=== PATIENT | female | born 1955 | race Caucasian/White ===

== ENCOUNTER 2016-09-18 18:17 | Observation (INO) ==
[2016-09-18 18:35] LABS: Basophils % 0.6 %; Eosinophils # 0.1 K/mcL (0.0-0.6); Eosinophils % 1.5 %; Hematocrit 50.5 % (35.3-44.9); Hemoglobin 17.1 g/dL (11.5-15.4); Immature Granulocytes % 0.2 % (0-4); Lymphocytes # 3.1 K/mcL (0.6-4.6); Lymphocytes % 47.2 %; Mean Corpuscular HGB Conc 33.9 g/dL (31.6-35.5); Mean Corpuscular Hemoglobin 30.8 pg (28.0-33.3); Mean Corpuscular Volume 90.8 fL (83.0-100.0); Mean Platelet Volume 9.1 fL (9.4-12.4); Monocytes # 0.4 K/mcL (0.0-1.3); Monocytes % 5.4 %; Platelet Count 277 K/mcL (140-400); Red Blood Count 5.56 M/mcL (3.82-4.97); Segmented Neutrophils % 45.1 %
--- NOTE | 2016-09-18 18:35 | Emergency Department Note ---
Disposition Clinical Impression: Right sided weakness, Ataxia CVA (cerebral vascular accident) Qualifiers: CVA mechanism: unspecified Qualified Code(s): I63.9 - Cerebral infarction, unspecified Disposition: Admitted As Inpatient Condition: Fair Time of Disposition: 19:25 Neuro HPI - General Chief Complaint: ED Neuro Symptoms/Deficit Stated Complaint: R/O stroke Time Seen by Provider: 09/18/16 18:26 Source: patient Mode of arrival: wheelchair Limitations: no limitations, language barrier Nursing Notes Reviewed: Yes Vital Signs Reviewed: Yes - History of Present Illness HPI Narrative: 61-year-old female history of hypertension presents for evaluation of possible stroke. Patient states she was well up until about 1730 this evening. Patient went to urgent care and had right arm weakness right leg weakness and difficulty speaking. States that she does not have a history of a stroke. Patient was sent here for evaluation from the urgent care. Patient denies any other systemic signs or symptoms. No history of chest pain or short of breath. No nausea vomiting or any other symptoms. States that she was dropping things earlier this evening when she noted the arm weaknesses. Patient states that she is difficulty finding her words. Patient denies being on any anticoagulation. - Related Data Home Medications: Home Medications Medication Instructions Recorded Confirmed Fluticasone Propionate Nasal 2 spray NS DAILY 10/01/14 09/03/16 [Flonase] Nitroglycerin [Nitrostat] 0.4 mg SL PRN PRN 07/18/15 09/03/16 Ranitidine HCl [Zantac] 150 mg PO BID 07/18/15 09/03/16 Lisinopril [Zestril] 20 mg PO DAILY 07/04/16 09/03/16 Albuterol Sulfate [Albuterol 1 puff IH QID 09/03/16 09/03/16 Inhaler] Previous Rx's Medication Instructions Recorded Ipratropium Neb [Atrovent Neb] 0.5 mg IH Q6HR #60 vial.neb 07/13/15 Potassium Chloride 10 meq PO DAILY #30 tab.er.prt 07/19/15 Allergies/Adverse Reactions: Allergies Allergy/AdvReac Type Severity Reaction Status Date / Time acetaminophen [From Vicodin] Allergy See Verified 09/18/16 17:08 Comments codeine Allergy Difficulty Verified 09/18/16 17:08 Breathing doxycycline Allergy Swelling Verified 09/18/16 17:08 of Lip/Tongue/Throat hydrocodone [From Vicodin] Allergy See Verified 09/18/16 17:08 Comments azithromycin [From Zithromax] AdvReac Itching Verified 09/18/16 17:08 clarithromycin [From Biaxin] AdvReac Loss of Verified 09/18/16 17:08 Appetite lidocaine AdvReac Anaphylaxis Verified 09/18/16 17:08 Penicillins AdvReac Difficulty Verified 09/18/16 17:08 Breathing prednisone AdvReac Vomiting Verified 09/18/16 17:08 All systems ED: reviewed and negative except as stated. Constitutional: Reports: as per HPI. Denies: fever Eyes: Reports: as per HPI ENT ED: Reports: as per HPI Cardiovascular: Reports: as per HPI. Denies: chest pain Respiratory: Reports: as per HPI. Denies: dyspnea Gastrointestinal: Reports: as per HPI. Denies: abdominal pain, nausea, vomiting Genitourinary: Reports: as per HPI Musculoskeletal: Reports: as per HPI Integumentary: Reports: as per HPI Neurological: Reports: as per HPI Psychiatric: Reports: as per HPI Endocrine: Reports: as per HPI Hematological/Lymphatic: Reports: as per HPI Past Medical History - Past Medical History Medical history: Reports: cancer, COPD, hypertension Surgical history: Reports: appendectomy, , cholecystectomy, hysterectomy Psychiatric history: Reports: no psych history DIETARY SERVER history: Reports: no DIETARY SERVER history - Social History Smoking Status: Former smoker Smokeless Tobacco Status: No Alcohol use: Reports: none Drug use: Reports: none Physical Exam - General Limitations: language barrier General appearance: in no apparent distress - Head Head exam: atraumatic, normocephalic, normal inspection - Eye Eye exam: Present: normal appearance, PERRL, EOMI - ENT ENT exam: normal exam, mucous membranes moist - Neck Neck exam: Present: normal inspection, trachea midline - Chest Chest inspection: Present: normal inspection, symmetric chest wall rise - Respiratory Respiratory exam: Present: normal lung sounds bilaterally. Absent: respiratory distress - Cardiovascular Cardiovascular exam: Present: regular rate, normal rhythm - Abdominal Exam Abdominal exam: Present: soft, Non-Tender - Rectal Exam Rn Women Services present during exam: Yes Rectal exam: Present: normal inspection, hemorrhoids. Absent: heme (+) stool, bloody stool - Extremities Exam Extremities exam: Present: normal inspection - Expanded Lower Extremity Exam Foot/toe exam: Present: normal inspection - Back Exam Back exam: Present: normal inspection - Neurological Exam Neurological exam: Present: alert, oriented X3, CN II-XII intact - Expanded Neurological Exam Patient oriented to: Present: person, place, time Speech: Present: expressive aphasia Cranial nerves: EOM function (II, III, IV, ): Normal, facial sensation (V): Normal, facial palsy (VII): Normal, spinal accessory function (XI): Normal, tongue deviation (XII): Normal Cerebellar function: finger to nose: Normal Motor strength - LUE: 5/5 Motor strength - RUE: 4/5 Motor strength - LLE: 5/5 Motor strength - RLE: 4/5 Coma Scale Eye Opening: Spontaneous Coma Scale Motor Response: Obeys Commands Coma Scale Verbal Response: Oriented Coma Scale Total: 15 - Skin Skin exam: Present: warm, dry, intact, normal color Course Course Narrative: Stroke alert activated on patient presentation. - Reevaluation(s) Reevaluation #1: Stroke alert activated upon ED assessment. Patient does have unilateral weakness on the right side. Patient does have some expressive aphasia. NIH of 2. Initial head CT by my interpretation doesn't show any acute bleeds. Awaiting radiology interpretation. Call placed to pharmacy to mix and hold TPA. Time: 18:36 Reevaluation #2: Patient seen and examined. Patient states that she does have visible blood in her stool. Patient been followed by GI. Etiology is unclear. Time: 18:43 Reevaluation #3: While the patient was in CT, the patient states she does have a dye allergy. Patient is not able to describe what happens with her allergy. Patient will be evaluated by other means and then CTA of the head and neck. Time: 19:45 - Consultations Consultation #1: Patient seen and examined. Spoke with neurology who is attempting to evaluate the patient via telemedicine. Time: 18:50 Consultation #2: [facility] neurologist via telemedicine does not recommend TPA at this point. Patient' s brother at bedside states she was last well possibly last night and patient now states that she has been having intermittent symptoms earlier today. Patient's repeat neurologic exam reveals slightly more pronounced ataxia on the right, patient's aphasia appears to be resolved. Time: 19:13 Vital Signs Temperature 98.3 F 09/18/16 18:21 Pulse Rate 86 09/18/16 18:21 Respiratory Rate 18 09/18/16 18:21 Blood Pressure 177/80 09/18/16 18:21 O2 Sat by Pulse Oximetry 97 09/18/16 18:21 Temperature 98.3 F 09/18/16 18:21 Pulse Rate 81 09/18/16 18:59 Respiratory Rate 18 09/18/16 18:59 Blood Pressure 149/78 09/18/16 18:59 O2 Sat by Pulse Oximetry 97 09/18/16 18:21 Oxygen Delivery Oxygen Delivery Room Air Neuro Symptoms/Deficit - MDM Narrative Medical decision making narrative: 61-year-old female with a history of hypertension coronary artery disease presents for evaluation of neuro deficits. Patient initial complaint was right- sided weakness with difficulty finding her words. Patient had an agent to initially on exam. Patient was only at bedside and confirmed that her last known well was a proximally 1730. Patient does have a history of dementia. Stroke alert was activated. Evaluation by neurologist at [facility] recommended against TPA as the patient's brother brought to bedside states the patient has been having intermittent symptoms and possible last done well as yesterday evening. Patient also has a history of GI bleeding. Patient's stool guaiac on exam was negative. Recommended against TPA by neurologist. Neurologist recommended further studies with CT angiogram of the head and neck. Patient was given aspirin. Patient will be admitted to the hospital service for frequent neuro checks and further neurologic studies. Patient as well as brother at bedside for agreeable with this plan of care. - Lab Data Lab results reviewed: Yes I reviewed the patient's lab results. Result diagrams: 09/18/16 18:27 09/18/16 18:27 Lab Results 09/18/16 09/18/16 09/18/16 Range/Units 18:26 18:27 18:27 WBC 6.6 (4.3-11.1) K/mcL RBC 5.56 H (3.82-4.97) M/mcL Hgb 17.1 H (11.5-15.4) g/dL Hct 50.5 H (35.3-44.9) % MCV 90.8 (83.0-100.0) fL MCH 30.8 (28.0-33.3) pg MCHC 33.9 (31.6-35.5) g/dL RDW 13.0 (11.5-14.5) % Plt Count 277 (140-400) K/mcL MPV 9.1 L (9.4-12.4) fL Immature Gran % 0.2 (0-4) % Seg Neutrophils % 45.1 % Lymphocytes % 47.2 % Monocytes % 5.4 % Eosinophils % 1.5 % Basophils % 0.6 % Neutrophils # 3.0 (1.6-8.9) K/mcL Lymphocytes # 3.1 (0.6-4.6) K/mcL Monocytes # 0.4 (0.0-1.3) K/mcL Eosinophils # 0.1 (0.0-0.6) K/mcL Basophils # 0.0 (0.0-0.2) K/mcL PT 10.7 (9.4-12.1) Seconds INR 1.0 APTT 33.9 (26.0-36.0) Seconds Sodium (136-145) mEq/L Potassium (3.5-4.5) mEq/L Chloride (98-109) mEq/L Carbon Dioxide (19-29) mEq/L BUN (7-20) mg/dL Creatinine (0.57-1.11) mg/dL Est GFR ( Amer) (> 60) Est GFR (Non-Af Amer) (> 60) BUN/Creatinine Ratio (6-26) Glucose (70-99) mg/dL POC Glucose 108 H (58-89) Calculated Osmolality (280-300) Calcium (8.6-10.8) mg/dL Troponin I (0-0.03) ng/mL 09/18/16 09/18/16 Range/Units 18:27 18:27 WBC (4.3-11.1) K/mcL RBC (3.82-4.97) M/mcL Hgb (11.5-15.4) g/dL Hct (35.3-44.9) % MCV (83.0-100.0) fL MCH (28.0-33.3) pg MCHC (31.6-35.5) g/dL RDW (11.5-14.5) % Plt Count (140-400) K/mcL MPV (9.4-12.4) fL Immature Gran % (0-4) % Seg Neutrophils % % Lymphocytes % % Monocytes % % Eosinophils % % Basophils % % Neutrophils # (1.6-8.9) K/mcL Lymphocytes # (0.6-4.6) K/mcL Monocytes # (0.0-1.3) K/mcL Eosinophils # (0.0-0.6) K/mcL Basophils # (0.0-0.2) K/mcL PT (9.4-12.1) Seconds INR APTT (26.0-36.0) Seconds Sodium 138 (136-145) mEq/L Potassium 3.6 (3.5-4.5) mEq/L Chloride 101 (98-109) mEq/L Carbon Dioxide 28 (19-29) mEq/L BUN 10 (7-20) mg/dL Creatinine 0.81 (0.57-1.11) mg/dL Est GFR ( Amer) > 60 (> 60) Est GFR (Non-Af Amer) > 60 (> 60) BUN/Creatinine Ratio 12 (6-26) Glucose 109 H (70-99) mg/dL POC Glucose (58-89) Calculated Osmolality 286 (280-300) Calcium 9.9 (8.6-10.8) mg/dL Troponin I 0.00 (0-0.03) ng/mL - Radiology Data Radiology results reviewed: Yes I reviewed the patient's radiology results. Head CT 09/18/16 00:00 IMPRESSION: No acute intracranial abnormality. If acute cerebral infarct is a clinical concern, an MRI is a more sensitive study. Findings were called to David Felix at 6:40 pm on 09/18/2016. D/ / Jewels Pedersen Cha, MD / Jewels Pedersen Cha, MD Interpreting Provider: Jewels Pedersen Cha, MD - EKG Data EKG attestation: Yes I reviewed and interpreted this EKG. EKG shows normal: sinus rhythm Rate: normal Rhythm: NSR [place]/QRS: normal T wave inversions noted in: v1, v2 (flattened t wave), v3 (flattened t wave) NIH Stroke Scale - Level of Consciousness LOC: Alert - LOC Questions LOC Questions: Answers both correctly - LOC Commands LOC Commands: Performs both correctly - Best Gaze Best Gaze: Normal - Visual Visual: No visual loss - Facial Palsy Facial Palsy: Normal - Motor Arms Motor Arm-Left: No drift for 10 seconds Motor Arm-Right: No drift for 10 seconds - Motor Legs Motor Leg-Left: No drift for 5 seconds Motor Leg-Right: Drift, does NOT hit bed - Limb Ataxia Limb Ataxia: Absent of affected limb too weak to perform exam - Sensory Sensory: Normal - Best Language Best Language: Mild to moderate aphasia. Examiner can identify picture from response - Dysarthria Dysarthria: Normal - Extinction and Inattention Extinction and Inattention: Normal - NIHSS Total Score NIHSS Total Score: 2 TPA Checklist - Source Information Source: Family - Eligibilty for IV tPA 1. LKW equal to or less than 4.5 hours be before treatment: No 2. Clinical diagnosis of ischemic stroke causing deficit: Yes 3. Age 18 years or older: Yes - Contraindications 4. Evidence of intracranial hemorrhage on pretreatment CT: No 5. Presentation suggests subarachnoid hem, even if CT normal: No 6. CT shows multilobar infarction: No 7. Known neoplasm, arteriovenous malformation, or aneurysm: No 8. Significant head trauma (w/ LOC) or CVA in last 3 months: No 9. BP elevated (systolic > 185 or diastolic > 110): No 10. Abnormal Blood Glucose (<50 or >400mg/dl): No 11. Active internal bleeding [PM.TPA15]: No 12. Known bleeding risk (including; not limited to 13-15): No 13. Heparin/argatroban/bivalirudin w/in 48hrs & PTT > normal: No 14. Platelet count less than 100,000/MM3: No 15. Current or recent use of anticoagualants (see protocol): No - Warnings/Precautions Considerations 16. Prior ischemic stroke within last 3 months: No 17. Recent history of intracranial hemorrhage: No 18. : No 19. Current/recent use Effient (7 days) or Brilinta (5 days): No 20. Arterial puncture at non compressible site or LP >7days: No 21. Major surgery or serious trauma in last 14 days: No 22. GI or urinary tract hemorrhage in last 21 days: No 23. SD involving left anterior myocardium in last 3 months: No 24. Suspected or known infective endocarditis/pericarditis: No - LKW: 3-4.5 hrs Add. Warnings/Precautions 25. oral anticoag other than warfarin regardles of last dose: No Patient/family understanding: The patient/family members have been counseled and understood the risk, benefit , and alternatives of treatment. Critical Care Time Critical Care Time: Yes Total Critical Care Time: 30 Attestation: I have personally performed a face to face evaluation on this patient. I have reviewed and agree with the care plan. History and Exam by me shows: Faizan - Faizan Situation: Demographics Background: Presenting Complaint Assessment: Vital Signs, Course and respsone to treatment, Patient/Family Expectation Recommendation: Barrier(s) to disposition, Recommendation based on pending studies, treatments, or consults S.[email or web address] Report Given to: Osiris Gloria Repor Time: 19:26
[2016-09-18 18:41] LABS: Prothrombin Time 10.7 Seconds (9.4-12.1)
[2016-09-18 18:43] LABS: Activated Partial Thrombo Time 33.9 Seconds (26.0-36.0)
[2016-09-18 18:47] LABS: BUN/Creatinine Ratio 12 (6-26); Blood Urea Nitrogen 10 mg/dL (7-20); Calcium 9.9 mg/dL (8.6-10.8); Carbon Dioxide 28 mEq/L (19-29); Chloride 101 mEq/L (98-109); Glucose 109 mg/dL (70-99); Osmolality,Calculated 286 (280-300); Potassium 3.6 mEq/L (3.5-4.5); Sodium 138 mEq/L (136-145); eGFR For African Americans > 60 (> 60); eGFR For Non-African Americans > 60 (> 60)
--- NOTE | 2016-09-18 18:51 | Emergency Department Note ---
START Narrative - START START: I examined this patient and my medical decision-making was reviewed with the ACCOUNTANT CONTROLLER/PA/Advanced Practice Nurse/Resident Physician. I agree with the documented findings, disposition and treatment plan as described except to the extent set forth below. ED attending: Patient's emergency medicine resident Dr. Felix. Please see copy of this note for H&P evaluation and management and ED disposition. We both had independent [id number] time in contact with this patient. Briefly: A 15-year-old female by private vehicle sent from urgent care for possible CVA. Last known well about 5:30 hypertension and history of blood in stool but no prior CVA. NIH was 2. Stroke alert was called. Emergent noncontrast head CT related by radiologic attending was "negative". Resident spoke with [facility] neurology and they will call back as his erratic traffic and get on the robot and evaluate the patient. Disposition pending. Provided 45 minutes of critical care services to this patient.
[2016-09-18] MEDS ORDERED: Aspirin 81 MG TAB.CHEW PO ONE (19:14)
[2016-09-18] MEDS ORDERED: Ondansetron 4 MG/2 ML VIAL IVP PRN (20:49)
[2016-09-18] MEDS ORDERED: Naloxone 0.4 MG/ML INJ IVP PRN (20:49)
--- NOTE | 2016-09-18 21:09 | Internal Med History&Physical ---
<Moisés Duque - Last Filed: 09/18/16 21:58> Date of Encounter: 09/18/16 Internal Medicine - H&P: HPI History of present illness: Ms. Guido is a 61 year old female Internal Medicine - H&P: Meds Fluticasone Propionate Nasal [Flonase] 2 spray NS DAILY 10/01/14 [History] Ipratropium Neb [Atrovent Neb] 0.5 mg IH Q6HR #60 vial.neb 07/13/15 [Rx] Nitroglycerin [Nitrostat] 0.4 mg SL PRN PRN 07/18/15 [History] Ranitidine HCl [Zantac] 150 mg PO BID 07/18/15 [History] Potassium Chloride 10 meq PO DAILY #30 tab.er.prt 07/19/15 [Rx] Albuterol Sulfate [Albuterol Inhaler] 1 puff IH QID 09/03/16 [History] Beclomethasone Diprop 80mcg [QVAR 80 mcg] 1 puff IH BID 09/18/16 [History] Cholecalciferol (Vitamin D3) [Vitamin D3] 50,000 unit PO QWEEK 09/18/16 [History ] Ipratropium/Albuterol Sulfate [Combivent Respimat Inhal [place]] 1 puff IH Q6H [History] Lisinopril/Hydrochlorothiazide [Zestoretic 20-12.5 mg Tablet] 1 each PO DAILY [History] Loratadine/Pseudophed (12 HR) [Claritin D (12HR)] 1 tab PO Q12H PRN 09/18/16 [ History] Allergies acetaminophen [From Vicodin] Allergy (Verified 09/18/16 17:08) See Comments codeine Allergy (Verified 09/18/16 17:08) Difficulty Breathing doxycycline Allergy (Verified 09/18/16 17:08) Swelling of Lip/Tongue/Throat hydrocodone [From Vicodin] Allergy (Verified 09/18/16 17:08) See Comments azithromycin [From Zithromax] Adverse Reaction (Verified 09/18/16 17:08) Itching clarithromycin [From Biaxin] Adverse Reaction (Verified 09/18/16 17:08) Loss of Appetite lidocaine Adverse Reaction (Verified 09/18/16 17:08) Anaphylaxis Penicillins Adverse Reaction (Verified 09/18/16 17:08) Difficulty Breathing prednisone Adverse Reaction (Verified 09/18/16 17:08) Vomiting All Systems PM: A 10-system review of systems was performed and is negative for pertinent findings except as documented above in the HPI. - Constitutional Vitals: Temp Pulse Resp BP Pulse Ox 98.3 F 81 18 150/81 97 09/18/16 18:21 09/18/16 18:59 09/18/16 20:12 09/18/16 20:12 09/18/16 18:21 Internal Med - H&P Results - Labs CBC & Chem 7: 09/18/16 18:27 09/18/16 18:27 - Attending Attestation I independently obtained history and examined this patient and my medical decision-making was reviewed with the nurse practitioner, Jennifer Garcia. I agree with the documented findings, disposition and treatment plan as described. My findings are summarized below: Patient was brought to the hospital with sudden onset confusion, right upper extremity weakness and slurred speech. All neurologic symptoms and deficits have resolved by now. On exam she is awake alert oriented 3, neuro exam is nonfocal. Heart is regular. Plan: We will place the patient in observation and start workup for TIA including MRI of the brain, MRA of the head and echocardiogram. I have advised smoking cessation, the patient does not feel ready to quit smoking. She has at high risk for morbidity, mortality and complications due to acute change in mental status. <Jennifer Garcia - Last Filed: 09/18/16 22:24> Date of Encounter: 09/18/16 Time of Encounter: 20:30 Assessment and Plan (1) TIA (transient ischemic attack) Current visit: Yes Status: Acute 1 episodes of intermittent weakness and expressive aphasia. Presently symptoms have resolved and she is back to baseline She states she had episode about a month ago similar symptoms. She was seen by her family physician carotid duplex was completed on 09/03/16 which revealed minimal plaque. Patient is a smoker has hyperlipidemia and high blood pressure she is not on any aspirin or statin she states that she is unable take statin due to myalgias and aspirin upsets her stomach. CT of her head is negative unable to complete CT A of head and neck due to allergy to dye. We will obtain MRI MRA of head and brain. 2 we will obtain a cardiac echo 3 continue with neuro checks 4 we will consult neurology 5 obtain lipid profile 6 we will get Plavix instead of aspirin 7 continuous cardiac monitoring Qualifiers: Transient cerebral ischemia type: unspecified Qualified Code(s): G45.9 - Transient cerebral ischemic attack, unspecified (2) HTN (hypertension) Current visit: Yes Status: Acute 1presently controlled we will continue with lisinopril/hydrochlorothiazide Qualifiers: Hypertension type: essential hypertension Qualified Code(s): I10 - Essential (primary) hypertension (3) CAD (coronary artery disease) Current visit: No Status: Chronic 1 patient is not on statins due to myalgias she is not on any aspirin due to GI upset we will give Plavix 2 trying cardiac troponins 3 continuous cardiac monitoring 4 obtain cardiac echo Qualifiers: Coronary Disease-Associated Artery/Lesion type: [place] artery [place] vs. transplanted heart: [place] heart Associated angina: without angina Qualified Code(s): I25.10 - Atherosclerotic heart disease of [place] coronary artery without angina pectoris (4) COPD (chronic obstructive pulmonary disease) Current visit: No Status: Chronic 1 we will continue with bronchodilators and oxygen as needed to maintain SPO2 greater than 92% 2 encourage patient to stop smoking Qualifiers: COPD type: unspecified COPD Qualified Code(s): J44.9 - Chronic obstructive pulmonary disease, unspecified (5) Tobacco abuse Current visit: Yes Status: Acute patient smokes a pack a day encouraged patient to stop smoking she states she is not interested. Offered nicotine patch patient declined at this time (6) DVT prophylaxis Current visit: Yes Status: Acute [facility] Internal Medicine - H&P: HPI Chief complaint: right-sided weakness Admitted From: Emergency Dept Plans for Post Hospital Care: Home History of present illness: Ms. Guido is a 61 year old female past medical history of hypertension coronary disease hyperlipidemia COPD history of GI bleed in the past. Approximately 4: 30 this evening, patient was in the kitchen preparing food, when she was unable to grasp and hold objects in her right hand she is dropping utensils. Her brother noted that patient was having difficulty speaking. She was taken to an urgent care for evaluation. She was advised to go to the ER and declined transported by EMS and was brought to the ER for evaluation per private vehicle.upon arrival patient did display expressive aphasia. confirmed to ER physician at her last known well was approximately 1730. stroke alert was activated patient was evaluated by neurologist at [facility] who recommended against any TPA and advised aspirin and CTA of head and neck. Patient unable to complete CTA due to allergy of dye. The brother was brought to the bedside who reports that the patient had been experiencing intermittent symptoms of right- sided weakness since yesterday. CT of head was negative for any intracranial abnormalities or bleeds NIH of 2 according to ER records repeat neurological exam revealed improved aphasia and more pronounced ataxia. Patient was given aspirin she has been admitted for further workup evaluation. Presently the patient is alert appropriate following simple commands she has equal strength in all 4 extremities cranial nerves II through XII are intact speech is clear, Romberg negative, coordination intact. Lung sounds are clear heart sounds are regular S1 and S2 with no rubs clicks, murmurs noted abdomen soft nontender no lower extremity edema noted. She has sinus rhythm on monitor hemodynamically stable with time. I reviewed this case with Dr. Duque who agrees with plan. Past Med Surg Social Fam HX - Past Medical History Medical history: cancer, COPD, hypertension Psychiatric history: no psych history - Past Surgical History Surgical History: appendectomy, , cholecystectomy, hysterectomy - Social History Smoking Status: Former smoker Smokeless Tobacco Status: No Alcohol use: none Drug use: none - Family History Mother Living Status: Cause of : liver cancer All Systems PM: A 10-system review of systems was performed and is negative for pertinent findings except as documented above in the HPI. - Constitutional Constitutional: weakness, no chills, no fever(s), no night sweats - EENT Eyes: no change in vision, no discharge, no pain, no photophobia Nose, mouth and throat: no dysphagia, no nasal discharge, no neck pain, no sore throat - Respiratory Respiratory: no cough, no dyspnea, no wheezing, no excessive phlegm production - Gastrointestinal Gastrointestinal: no abdominal pain, no diarrhea, no hematemesis, no hematochezia, no melena, no nausea, no vomiting - Genitourinary Genitourinary: no change in urinary stream, no dysuria, no flank pain, no hematuria - Musculoskeletal Musculoskeletal ROS IM: no numbness, no tingling - Integumentary Integumentary IM: no rash, no unusual bruising - Neurological Neurological ROS: abnormal speech, confusion, weakness - Hematologic/Lymphatic Hematologic/Lymphatic: no easy bruising - Constitutional Vitals: Temp Pulse Resp BP Pulse Ox 98.3 F 81 18 150/81 97 09/18/16 18:21 09/18/16 18:59 09/18/16 20:12 09/18/16 20:12 09/18/16 18:21 General appearance: Present: A&O X 3, answers questions appropriately - Head Head exam: Present: atraumatic, normocephalic - Eye Eye exam: Present: PERRL, conjuntiva pink, sclera anicteric Pupils: Present: PERRL - Neck Neck exam general surgery: Present: supple, trachea midline. Absent: lymphadenopathy - Respiratory Respiratory exam: Present: CTAB. Absent: accessory muscle use, rales, rhonchi, wheezes - Cardiovascular Cardiovascular exam: Present: RRR, +S1, +S2. Absent: diastolic murmur, gallop, rubs, systolic murmur - GI/Abdominal GI/Abdominal exam: Present: normal bowel sounds, soft, no peritoneal signs. Absent: distended, tenderness - Extremities Exam Extremities exam: Present: warm, radial pulses palpable and symetrical. Absent : calf tenderness, cyanotic, pedal edema - Neurological Exam Neurological exam: Present: alert, CN II-XII intact, oriented X3, no focal deficits. Absent: pronater drift, facial droop, speech deficit - Skin Skin exam: Present: dry, intact Internal Med - H&P Results - Labs CBC & Chem 7: 09/18/16 18:27 09/18/16 18:27 - EKG Data EKG shows normal: sinus rhythm - Diagnostic Studies Other Images Additional comments: Head CT 09/18/16 00:00 IMPRESSION: No acute intracranial abnormality. If acute cerebral infarct is a clinical concern, an MRI is a more sensitive study. Findings were called to David Felix at 6:40 pm on 09/18/2016. D/ / Jewels Pedersen Cha, MD / Jewels Pedersen Cha, MD Interpreting Provider: Jewels Pedersen Cha, MD
[2016-09-19 01:40] LABS: Basophils % 0.4 %; Eosinophils # 0.1 K/mcL (0.0-0.6); Eosinophils % 1.3 %; Hematocrit 45.6 % (35.3-44.9); Hemoglobin 15.3 g/dL (11.5-15.4); Immature Granulocytes % 0.2 % (0-4); Lymphocytes # 4.7 K/mcL (0.6-4.6); Lymphocytes % 44.9 %; Mean Corpuscular HGB Conc 33.6 g/dL (31.6-35.5); Mean Corpuscular Hemoglobin 30.2 pg (28.0-33.3); Mean Corpuscular Volume 90.1 fL (83.0-100.0); Mean Platelet Volume 9.4 fL (9.4-12.4); Monocytes # 0.7 K/mcL (0.0-1.3); Monocytes % 6.4 %; Neutrophils # 4.9 K/mcL (1.6-8.9); Platelet Count 271 K/mcL (140-400); Red Blood Count 5.06 M/mcL (3.82-4.97); Red Cell Distribution Width 12.9 % (11.5-14.5); Segmented Neutrophils % 46.8 %
[2016-09-19 01:53] LABS: BUN/Creatinine Ratio 11 (6-26); Blood Urea Nitrogen 9 mg/dL (7-20); Calcium 9.9 mg/dL (8.6-10.8); Carbon Dioxide 31 mEq/L (19-29); Chloride 100 mEq/L (98-109); Chol/HDL Ratio 4.6 (0-4.9); Cholesterol 260 mg/dL (< 200); Glucose 86 mg/dL (70-99); HDL Cholesterol 57 mg/dL (40-59); LDL Cholesterol,Calculated 166 mg/dL (0-99); Magnesium 2.1 mg/dL (1.6-2.6); Osmolality,Calculated 290 (280-300); Potassium 3.4 mEq/L (3.5-4.5); Sodium 141 mEq/L (136-145); Triglycerides 183 mg/dL (< 150); eGFR For African Americans > 60 (> 60); eGFR For Non-African Americans > 60 (> 60)
[2016-09-19] MEDS ORDERED: Ipratropium Neb 0.5 MG NEBULIZER IH SCH (04:00)
[2016-09-19 04:19] VITALS: BP 145/69
[2016-09-19] MEDS ORDERED: Famotidine 20 MG TABLET PO SCH (07:30)
[2016-09-19] MEDS ORDERED: Fluticasone Propionate Nasal 50 MCG/SPRAY BOTTLE NS SCH (09:00)
[2016-09-19] MEDS ORDERED: Aspirin 81 MG TAB.CHEW PO SCH (09:00)
[2016-09-19] MEDS ORDERED: Lisinopril-HCTZ 20-12.5mg TABLET PO SCH (09:00)
--- NOTE | 2016-09-19 16:12 | Electrocardiograph Report ---
[place] [id number] Test Date: 2016-09-18 Pat Name: Marline Guido Department: 104 Room: [id number] Gender: F Television An[employer]: : 1955 Requested By: David Felix Order Number: [id number] Reading MD: Margaret Martinez Measurements Intervals [place] Rate: 76 P: 68 TN: 179 QRS: 62 QRSD: 76 T: 47 QT: 374 QTc: 404 Interpretive Statements SINUS RHYTHM NONSPECIFIC T-WAVE ABNORMALITY Electronically Signed On 09-19-2016 16:11:06 EDT by Margaret Martinez
== END 2016-09-19 07:45 | disposition left against medical advice (07) ==
LOC: 2NENU 18:17 → EMEROO 18:17 → 2NENU 21:07
PROVIDERS: ADMIT Internal Medicine; ATTEND Internal Medicine